=== PATIENT | female | born 1965 | race Caucasian/White ===

== ENCOUNTER 2019-09-23 | Day surgery (SDC) | payer BC ==
[~2019-09-23] MED LIST: CHANTIX0.5 MG PO; CYMBALTA20 MG PO; DICLOFENAC SODI75 MG PO; FISH OIL1000 MG PO; FLEXERIL5 M1 PO; HYDROCHLOROT12.5 MG PO; LEVOTHYROXIN100 MCG PO; LEVOTHYROXIN75 MC1 PO; LEVOTHYROXIN88 MC1 PO; LORTAB 5/3255 MG PO; LOSARTAN POTASS25 MG PO; MOBIC7.5 M1 PO; PAROXETINE HCL20 MG PO; PAROXETINE20 MG PO; PAROXETINE30 MG PO; PREMPRO1 TA1 PO; SIMVASTATIN10 MG PO; TRAMADOL HCL50 MG PO; ULTRAM50 MG; VITAMIN D350000 UNIT
--- NOTE | 2019-10-05 12:49 | NUR ---
PER DR RAMIREZ THE PATHOLOGY WAS BENIGN. I ADVISED THE PATIENT THE SAME. INSTRUCTED PATIENT TO HAVE REPEAT COLONOSCOPY IN 5 YEARS. SHE UNDERSTOOD. SENT COPY OF NOTE TO FERNANDA TOURE.
== END 2019-09-23 10:25 | disposition home or self-care (01) | DRG 951 ==
PROC: 0DBN8ZX Excision of Sigmoid Colon, Via Natural or Artificial Opening Endoscopic, Diagnostic (ICD-10-PCS; principal; 2019-09-23)
DX: Z12.11 Encounter for screening for malignant neoplasm of colon (principal); D12.5 Benign neoplasm of sigmoid colon

== ENCOUNTER 2021-09-20 09:23 | Emergency (ER) | payer OTHER ==
[~2021-09-20] VITALS: Ht 162.6 cm; Wt 56.8 kg
[2021-09-20] VITALS (13 sets, daily range): BP systolic 112–160; BP diastolic 52–87
[2021-09-20 10:37] LABS: HEMATOCRIT 45.5 % (37.0-47.0); HEMOGLOBIN 14.9 g/dl (12.0-16.0); IMMATURE GRANULOCYTES 0.2 % (0.0-5.0); MEAN CELL VOLUME 95.8 fL CALC (80.0-100.0); MEAN CORPUSCULAR HGB 31.4 pG CALC (26.0-32.0); MEAN CORPUSCULAR HGB CONC 32.7 g/dL CAL (32.0-36.0); NEUT# 10.12 thou/uL (2.00-7.15); RED BLOOD COUNT 4.75 mill/uL (4.20-5.60)
[2021-09-20 10:56] LABS: ALBUMIN 4.6 g/dL (3.2-5.0); ALKALINE PHOSPHATASE 106 u/l (38-126); AMYLASE 95 u/l (30-110); BUN 18 mg/dL (7-17); BUN/CREATININE RATIO 22 (12-20 (CALC)); CARBON DIOXIDE 32 mmol/l (22-30); CHLORIDE 90 mmol/l (95-108); CPK 126 u/l (30-165); CREATININE 0.8 mg/dL (0.5-1.0); ETHYL ALCOHOL 0 mg/dl (0-30); GFR > 60 ML/MIN (>=60 (CALC)); GFR FOR AFR.AMER. > 60 ML/MIN (>=60 (CALC)); LIPASE 221 u/l (23-300); MAGNESIUM 2.1 mg/dL (1.6-2.3); SGOT/AST 35 u/l (14-36); SODIUM 133 mmol/l (137-146); TOTAL PROTEIN 7.7 g/dL (6.3-8.2)
[2021-09-20 10:57] LABS: PROTHROMBIN TIME 10.4 SECONDS (9.0-12.5)
[2021-09-20 10:58] LABS: ANION GAP 14 (6-22 (CALC)); BILIRUBIN, TOTAL 0.9 mg/dL (0.0-1.4); POTASSIUM 2.7 mmol/l (3.5-5.1)
== END 2021-09-20 14:20 | disposition short-term general hospital (02) | DRG 282 ==
LOC: ED 09:23
DX: I21.4 Non-ST elevation (NSTEMI) myocardial infarction (principal); E87.6 Hypokalemia; R55 Syncope and collapse; S00.12XA Contusion of left eyelid and periocular area, initial encounter; S00.11XA Contusion of right eyelid and periocular area, initial encounter; S30.1XXA Contusion of abdominal wall, initial encounter; F17.200 Nicotine dependence, unspecified, uncomplicated; W17.89XA Other fall from one level to another, initial encounter
CPT/HCPCS: J2060

== ENCOUNTER 2023-01-07 10:34 | Emergency (ER) | payer SELFPAY ==
[~2023-01-07] VITALS: Ht 162.6 cm; Wt 74.8 kg
[2023-01-07] VITALS (25 sets, daily range): BP systolic 119–173; BP diastolic 62–107
[2023-01-07 11:05] LABS: BASO% 0.1 % (0-3); EOS% 0.8 % (0-8); IMMATURE GRANULOCYTES 0.3 % (0.0-5.0); LYMPH% 13.6 % (15-41); MEAN CELL VOLUME 96.9 fL CALC (80.0-100.0); MEAN CORPUSCULAR HGB 30.7 pG CALC (26.0-32.0); MEAN CORPUSCULAR HGB CONC 31.7 g/dL CAL (32.0-36.0); MONO% 2.7 % (2-13); NEUT# 11.86 thou/uL (2.00-7.15); NEUT% 82.5 % (42-76); RED BLOOD COUNT 4.23 mill/uL (4.20-5.60)
[2023-01-07 11:22] LABS: D-DIMER 0.51 mg/L (0.19-0.60)
[2023-01-07 11:23] LABS: PROTHROMBIN TIME 10.2 SECONDS (9.0-12.5)
[2023-01-07 11:27] LABS: ALBUMIN 4.3 g/dL (3.2-5.0); BUN 16 mg/dL (7-17); BUN/CREATININE RATIO 27 (12-20 (CALC)); CARBON DIOXIDE 32 mmol/l (22-30); CREATININE 0.6 mg/dL (0.5-1.0); GFR FOR AFR.AMER. > 60 ML/MIN (>=60 (CALC)); GFR OTHER RACES > 60 ML/MIN (>=60 (CALC)); SGOT/AST 47 u/l (14-36); TOTAL PROTEIN 7.7 g/dL (6.3-8.2)
[2023-01-07 11:33] LABS: ALKALINE PHOSPHATASE 174 u/l (38-126); ANION GAP 11 (6-22 (CALC)); BILIRUBIN, TOTAL 0.5 mg/dL (0.02-1.3); CHLORIDE 102 mmol/l (95-108); SODIUM 142 mmol/l (137-146)
[2023-01-07 13:10] LABS: URINE BILIRUBIN - DIPSTICK NEGATIVE (NEGATIVE); URINE BLOOD DIPSTICK NEGATIVE (NEGATIVE); URINE COLOR YELLOW; URINE GLUCOSE - DIPSTICK NEGATIVE (NEGATIVE); URINE KETONE >=80 mg/dL (NEGATIVE); URINE LEUK ESTERASE NEGATIVE (NEGATIVE); URINE PROTEIN - DIPSTICK NEGATIVE (NEG-TRACE); URINE UROBILINOGEN - DIPSTICK 0.2 E.U./dL (0.2)
[2023-01-07 13:13] LABS: URINE NITRITE - DIPSTICK NEGATIVE (Negative)
== END 2023-01-07 16:57 | disposition home or self-care (01) | DRG 880 ==
LOC: ED 10:34
PROVIDERS: Family Medicine
DX: F41.0 Panic disorder [episodic paroxysmal anxiety] (principal); E87.6 Hypokalemia; I10 Essential (primary) hypertension; F17.200 Nicotine dependence, unspecified, uncomplicated

== ENCOUNTER 2023-01-09 12:59 | Emergency (ER) | payer BC ==
[2023-01-09] VITALS (14 sets, daily range): BP systolic 133–177; BP diastolic 80–116
[~2023-01-09] VITALS: Ht 162.6 cm; Wt 68.0 kg
[2023-01-09] MEDS ORDERED: ATORVASTATIN CA40 MG PO (13:11)
[2023-01-09] MEDS ORDERED: DULOXETINE HCL20 MG (13:12)
[2023-01-09] MEDS ORDERED: BUSPAR10 M1 PO (13:12)
[2023-01-09] MEDS ORDERED: CETIRIZINE10 MG PO (13:15)
[2023-01-09] MEDS ORDERED: POT CHLORIDE10 ME5 PO (13:15)
[2023-01-09] MEDS ORDERED: ASPIRINCHW 81MG PO (13:16)
[2023-01-09] MEDS ORDERED: MUCINEX600 MG PO (13:16)
[2023-01-09 13:50] LABS: BASO% 0.2 % (0-3); EOS% 0.2 % (0-8); IMMATURE GRANULOCYTES 0.3 % (0.0-5.0); LYMPH% 20.7 % (15-41); MEAN CELL VOLUME 93.9 fL CALC (80.0-100.0); MEAN CORPUSCULAR HGB 30.7 pG CALC (26.0-32.0); MEAN CORPUSCULAR HGB CONC 32.7 g/dL CAL (32.0-36.0); MONO% 7.6 % (2-13); NEUT# 9.08 thou/uL (2.00-7.15); RED BLOOD COUNT 5.21 mill/uL (4.20-5.60); RED CELL DISTRI WIDTH 12.9 % (11.5-15.5)
[2023-01-09 13:51] LABS: HEMATOCRIT 48.9 % (37.0-47.0)
[2023-01-09 14:04] LABS: ALBUMIN 4.7 g/dL (3.2-5.0); ALKALINE PHOSPHATASE 185 u/l (38-126); ANION GAP 16 (6-22 (CALC)); BILIRUBIN, TOTAL 0.7 mg/dL (0.02-1.3); BUN 19 mg/dL (7-17); BUN/CREATININE RATIO 23 (12-20 (CALC)); CARBON DIOXIDE 37 mmol/l (22-30); CREATININE 0.9 mg/dL (0.5-1.0); GFR FOR AFR.AMER. > 60 ML/MIN (>=60 (CALC)); GFR OTHER RACES > 60 ML/MIN (>=60 (CALC)); LIPASE 71 u/l (23-300); MAGNESIUM 1.9 mg/dL (1.6-2.3); POTASSIUM 3.3 mmol/l (3.5-5.1); SGOT/AST 59 u/l (14-36); SODIUM 138 mmol/l (137-146); TOTAL PROTEIN 8.8 g/dL (6.3-8.2)
[2023-01-09 14:06] LABS: URINE BLOOD DIPSTICK MODERATE (NEGATIVE); URINE COLOR YELLOW; URINE GLUCOSE - DIPSTICK NEGATIVE (NEGATIVE); URINE KETONE 15 mg/dL (NEGATIVE); URINE LEUK ESTERASE NEGATIVE (NEGATIVE); URINE PROTEIN - DIPSTICK >=300 mg/dL (NEG-TRACE); URINE SPECIFIC GRAVITY 1.025; URINE UROBILINOGEN - DIPSTICK 0.2 E.U./dL (0.2)
[2023-01-09 14:07] LABS: URINE NITRITE - DIPSTICK NEGATIVE (Negative)
[2023-01-09 14:09] LABS: CHLORIDE 88 mmol/l (95-108)
[2023-01-09 14:15] LABS: URINE CASTS FEW lpf (NONE-RARE); URINE MUCUS FEW hpf (NONE-FEW); URINE SQUAMOUS EPITHELIAL CELL MANY EPI/hpf (0-FEW)
== END 2023-01-09 15:21 | disposition short-term general hospital (02) | DRG 282 ==
LOC: ED 12:59
PROVIDERS: Nurse Practitioner
DX: I21.4 Non-ST elevation (NSTEMI) myocardial infarction (principal); I10 Essential (primary) hypertension; F41.9 Anxiety disorder, unspecified; I25.2 Old myocardial infarction; F17.200 Nicotine dependence, unspecified, uncomplicated
CPT/HCPCS: J1650

== ENCOUNTER 2024-07-18 17:27 | Emergency (ER) | payer OTHER ==
[2024-07-18] VITALS (14 sets, daily range): BP systolic 135–174; BP diastolic 66–101
[~2024-07-18] VITALS: Ht 162.6 cm; Wt 72.5 kg
[~2024-07-18 17:27] MED LIST changes: +ASPIRINCHW 81MG PO; +ATORVASTATIN CA40 MG PO; +BUSPAR10 M1 PO; +CETIRIZINE10 MG PO; +DULOXETINE HCL20 MG; +MUCINEX600 MG PO; +POT CHLORIDE10 ME5 PO
[2024-07-18] MEDS ORDERED: ASPIRIN 81 MG/TAB PO ONE (17:35)
[2024-07-18] MEDS ORDERED: LORazepam 1 MG/TAB PO ONE ×2 (17:35→18:40)
[2024-07-18] MEDS ORDERED: ONDANSETRON HCl 4 MG/2 ML SDV IV ONE (18:05)
[2024-07-18 18:32] LABS: BASO% 0.2 % (0-3); EOS% 0.1 % (0-8); IMMATURE GRANULOCYTES 0.2 % (0.0-5.0); LYMPH% 9.2 % (15-41); MEAN CELL VOLUME 97.3 fL CALC (80.0-100.0); MEAN CORPUSCULAR HGB 31.7 pG CALC (26.0-32.0); MEAN CORPUSCULAR HGB CONC 32.6 g/dL CAL (32.0-36.0); NEUT# 11.09 thou/uL (2.00-7.15); NEUT% 87.3 % (42-76); RED BLOOD COUNT 3.75 mill/uL (4.20-5.60); RED CELL DISTRI WIDTH 13.1 % (11.5-15.5)
[2024-07-18 18:33] LABS: HEMATOCRIT 36.5 % (37.0-47.0); HEMOGLOBIN 11.9 g/dl (12.0-16.0)
[2024-07-18 18:44] LABS: ALBUMIN 4.2 g/dL (3.2-5.0); BILIRUBIN, TOTAL 0.6 mg/dL (0.02-1.3); CREATININE 0.6 mg/dL (0.5-1.0)
[2024-07-18] MEDS ORDERED: DiphenhydrAMINE HCL 50 MG/ML SDV IV ONE (20:20)
[2024-07-18] MEDS ORDERED: PROMETHAZINE HCL 25 MG/ML AMP IV ONE (20:20)
[2024-07-18] MEDS ORDERED: SODIUM CHLORIDE 0.9% 1,000 ML IV ONE ×2 (20:20→22:40)
[2024-07-18] MEDS ORDERED: Heparin SODIUM (Porcine) 5,000 UNITS/ML SDV IV ONE (21:30)
[2024-07-18] MEDS ORDERED: Heparin SODIUM (Porcine) 500 ML IV ONE (21:30)
[2024-07-18] MEDS ORDERED: PROCHLORPERAZINE EDISYLATE 10 MG/2 ML SDV IV ONE (21:50)
[2024-07-18 22:00] LABS: ACT PARTIAL THROMBO TIME 24.4 SECONDS (20.0-32.5)
[2024-07-18 22:01] LABS: PROTHROMBIN TIME 10.6 SECONDS (9.0-12.5)
[2024-07-18] MEDS ORDERED: POTASSIUM CHLORIDE 20 MEQ/TAB PO ONE (22:50)
[2024-07-18 23:10] LABS: URINE BILIRUBIN - DIPSTICK Negative (NEGATIVE); URINE BLOOD DIPSTICK Negative (NEGATIVE); URINE GLUCOSE - DIPSTICK Negative (NEGATIVE); URINE KETONE Trace mg/dL (NEGATIVE); URINE LEUK ESTERASE Negative (NEGATIVE); URINE NITRITE - DIPSTICK Negative (Negative); URINE PROTEIN - DIPSTICK Negative (NEG-TRACE); URINE SPECIFIC GRAVITY 1.015; URINE UROBILINOGEN - DIPSTICK 0.2 E.U./dL (0.2)
[2024-07-18 23:15] LABS: URINE COLOR Yellow
[2024-07-19] VITALS: BP 144/87
[2024-07-19 00:17] VITALS: BP 127/95
[2024-07-19 01:01] VITALS: BP 129/62
[2024-07-19 02:03] VITALS: BP 154/69
[2024-07-19 03:45] VITALS: BP 154/69
== END 2024-07-19 03:45 | DRG 282 ==
LOC: ED 17:27
PROVIDERS: Family Medicine
DX: I21.4 Non-ST elevation (NSTEMI) myocardial infarction (principal); I10 Essential (primary) hypertension; E78.5 Hyperlipidemia, unspecified; I25.2 Old myocardial infarction; F17.200 Nicotine dependence, unspecified, uncomplicated
CPT/HCPCS: J0780; J1200; J1644; J2405; J2550; Q9967